=== PATIENT | male | born 1945 | race Caucasian/White ===

== ENCOUNTER 2018-07-08 07:11 | Day surgery (SDC) | payer BC, OTHER ==
[~2018-07-08 07:11] MED LIST: Buffered Lidocaine 0.9% SYRIN* 5 ML/SYR SYRINGE INTRADERM ONE
[2018-07-08] MEDS ORDERED: ROPIVACAINE 5 MG/ML 30 ML BTL (0.5%) ONE (08:12)
[2018-07-08] MEDS ORDERED: Midazolam* 1 MG/ML 2 ML VIAL (2 MG) ONE (08:15)
[2018-07-08] MEDS ORDERED: fentaNYL* 50 MCG/ML 2 ML VIAL (100 MCG VIAL) ONE (08:15)
[2018-07-08] MEDS ORDERED: Ondansetron INJ* 2 MG/ML VIAL IV PRN (08:54)
[2018-07-08] MEDS ORDERED: Naloxone* 0.4 MG/ML 1 ML VIAL IV PRN (08:54)
[2018-07-08] MEDS ORDERED: Acetaminophen TAB* 325 MG PO PRN (08:54)
[2018-07-08] MEDS ORDERED: oxyCODONE TAB* 5 MG TAB PO PRN (08:54)
[2018-07-08 10:30] VITALS: BP 133/66
--- NOTE | 2018-07-09 03:17 | OP ---
DATE OF OPERATION: 07/08/18 - [facility] DATE OF : 49 SURGEON: Helio Park MD SUPERVISOR [employer]: FARHANA Lyon ANESTHESIOLOGIST: Dr. Moreno. ANESTHESIA: Local MAC. PRE-OP DIAGNOSES: 1. Left carpal tunnel syndrome. 2. Left ulnar nerve compression at the wrist. POST-OP DIAGNOSES: 1. Left carpal tunnel syndrome. 2. Left ulnar nerve compression at the wrist. OPERATIVE PROCEDURES: 1. Left carpal tunnel release. 2. Left ulnar nerve decompression including decompression of the motor branch at the wrist. INDICATIONS: Julius has significant symptoms related to left carpal tunnel syndrome. 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 We had talked about risks and benefits. He understands there is risk of neurovascular injury. He wanted to proceed with surgery. ESTIMATED BLOOD LOSS: 2 mL. COMPLICATIONS: None. FINDINGS: See above and below. DESCRIPTION OF PROCEDURE: Julius was seen in the preoperative area. The correct site, side, and procedure were identified. We came back to the operating room. We had a time-out, infiltrated the operative area with 0.5% ropivacaine. The arm was prepped and draped in the usual fashion. A time-out was performed. The arm was exsanguinated with the Esmarch and the tourniquet was inflated to 250 mmHg. I made a longitudinal incision in the proximal palm which was brought back across the ulnar side of the wrist in a Aquilino-type fashion. The dissection was carried down. Full thickness flaps were raised off of the distal antebrachial fascia and transverse carpal ligament. The fascia was opened with a 15 blade and the decompression was extended down distally staying just radial to the hook of the hamate releasing the entirety of the transverse carpal ligament and the distal antebrachial fascia. 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 This was released until there was no compression on the nerve. Once the carpal tunnel release was done, I opened the fascia overlying Guyon's canal. The ulnar artery was identified. The release was taken proximally and distally till the artery was completely freed up. There was a couple of traversing perforating branches crossing from the artery over the ulnar nerve. These were dissected free and then cauterized and released with the bipolar cautery. I then carefully released the ulnar nerve sensory branches distally. I then gently retracted the artery and the nerve out of the way and I was able to release the hypothenar fascia including the deep fascial layer in its entirety so that the motor branch was completely decompressed. Once the ulnar nerve was decompressed proximally and distally, there was no compression on the nerve. I irrigated out the wound, the skin was closed with 4-0 nylon suture. The wounds were dressed with soft dressings. He was then woken up and taken to the recovery room in stable condition. [id number]/[facility] #: [id number] RENAE
== END 2018-07-08 10:20 | disposition home or self-care (01) ==
LOC: OREAST 07:11
PROVIDERS: ATTEND Orthopaedic Surgery Hand Surgery
DX: G56.02 Carpal tunnel syndrome, left upper limb (principal); G56.22 Lesion of ulnar nerve, left upper limb; I10 Essential (primary) hypertension; I48.91 Unspecified atrial fibrillation; Z79.01 Long term (current) use of anticoagulants; Z87.891 Personal history of nicotine dependence; Z85.828 Personal history of other malignant neoplasm of skin; M19.90 Unspecified osteoarthritis, unspecified site
CPT/HCPCS: J2250; J2795; J3010

== ENCOUNTER 2021-09-14 11:29 | Observation (INO) ==
[2021-09-14] MEDS ORDERED: Lactated Ringers 500 ml BAG 500 ML IV ONE (11:53)
[2021-09-14 12:38] LABS: ABS Basophils 0.1 10^3/ul (0-0.2); ABS Lymphocytes 0.5 10^3/ul (1.0-4.8); ABS Monocytes 0.4 10^3/ul (0-0.8); ABS Neutrophils 5.6 10^3/ul (1.5-7.7); Eosinophil % 0.2 %; Hematocrit 40 % (42-52); Hemoglobin 14.7 g/dL (14.0-18.0); Lymphocyte % 7.7 %; Mean Corpuscular HGB Conc 37 g/dL (31-36); Mean Corpuscular Hemoglobin 31 pg (27-31); Mean Corpuscular Volume 86 fL (80-94); Mean Platelet Volume 9.1 fL (7.4-10.4); Nucleated Red Blood Cells % 0.1; Platelet Count 200 10^3/uL (150-450); Red Blood Count 4.68 10^6 /uL (4.18-5.48); Red Cell Distribution Width 13 % (10-15); White Blood Count 6.6 10^3/uL (3.5-10.8)
[2021-09-14 12:46] LABS: INR 2.08 (0.86-1.15)
[2021-09-14 12:56] LABS: Albumin 3.9 g/dL (3.2-5.2); Calcium 9.1 mg/dL (8.6-10.3); Globulin 3.9 g/dL (2-4); Total Bilirubin 1.7 mg/dL (0.2-1.0); Total Protein 7.8 g/dL (6.4-8.9); eGFR CKD-EPI 72.5 (>60)
[2021-09-14 12:57] LABS: Troponin I 0.01 ng/mL (<0.03)
[2021-09-14 13:06] LABS: Potassium 2.6 mmol/L (3.5-5.0)
[2021-09-14] MEDS ORDERED: Potassium Chlor 20 meq TAB.ER PO ONE (13:06)
[2021-09-14] MEDS: KCL 20 MEQ/100 ML IVPREMIX 20 MEQ/100 ML BAG IV SCH ×2 (13:35→18:27)
[2021-09-14] MEDS ORDERED: Magnesium Sulfate 2 gm BAG 2 GM/50 ML BAG IVPB ONE (18:22)
[2021-09-14 18:44] LABS: Urine Appearance Clear; Urine Bilirubin Negative (Negative); Urine Blood Negative (Negative); Urine Color Yellow; Urine Glucose Negative (Negative); Urine Ketones Negative (Negative); Urine Nitrite Negative (Negative); Urine Protein 1+(30 mg/dL) (Negative); Urine Specific Gravity 1.015 (1.002-1.030); Urine Urobilinogen Positive (Negative)
[2021-09-14 18:46] LABS: Urine Bacteria Absent (Absent); Urine Red Blood Cell Trace(0-2/hpf) (Absent); Urine Squamous Epithelial Cell Present (Absent); Urine White Blood Cell Trace(0-5/hpf) (Absent)
[2021-09-14 21:43] LABS: Rapid COVID-19 Molecular Detected (Undetected)
[2021-09-14 22:35] LABS: Calcium 9.1 mg/dL (8.6-10.3); Potassium 3.2 mmol/L (3.5-5.0); eGFR CKD-EPI 90.5 (>60)
[2021-09-15] MEDS: Potassium Chlor 20 meq TAB.ER PO SCH ×4 (01:39→15:52)
[2021-09-15] MEDS ORDERED: Warfarin per PHARMACY **NOTE FOLLOW UP SCH (02:00)
[2021-09-15 08:08] LABS: ABS Lymphocytes 0.5 10^3/ul (1.0-4.8); ABS Monocytes 0.4 10^3/ul (0-0.8); ABS Neutrophils 4.6 10^3/ul (1.5-7.7); Eosinophil % 0.9 %; Hematocrit 40 % (42-52); Hemoglobin 14.5 g/dL (14.0-18.0); Lymphocyte % 9.2 %; Mean Corpuscular HGB Conc 36 g/dL (31-36); Mean Corpuscular Hemoglobin 32 pg (27-31); Mean Corpuscular Volume 88 fL (80-94); Mean Platelet Volume 9.2 fL (7.4-10.4); Nucleated Red Blood Cells % 0.1; Platelet Count 208 10^3/uL (150-450); Red Blood Count 4.58 10^6 /uL (4.18-5.48); Red Cell Distribution Width 13 % (10-15); White Blood Count 5.6 10^3/uL (3.5-10.8)
[2021-09-15 08:24] LABS: Calcium 9.2 mg/dL (8.6-10.3); INR 2.38 (0.86-1.15); Potassium 3.7 mmol/L (3.5-5.0)
[2021-09-15] MEDS: CMCS: Epleronone 25 mg TAB (NF) PO SCH ×2 (09:15→10:44)
[2021-09-15 12:59] LABS: Magnesium 2.3 mg/dL (1.9-2.7)
[2021-09-15 19:03] LABS: Calcium 9.3 mg/dL (8.6-10.3); Magnesium 2.1 mg/dL (1.9-2.7); Potassium 4.6 mmol/L (3.5-5.0); eGFR CKD-EPI 81.4 (>60)
[2021-09-16 06:39] LABS: Hematocrit 38 % (42-52); Hemoglobin 13.8 g/dL (14.0-18.0); Mean Platelet Volume 8.6 fL (7.4-10.4); Platelet Count 227 10^3/uL (150-450)
[2021-09-16 06:54] LABS: INR 3.02 (0.86-1.15)
[2021-09-16 07:06] LABS: Calcium 9.5 mg/dL (8.6-10.3); Potassium 4.6 mmol/L (3.5-5.0); eGFR CKD-EPI 86.7 (>60)
[2021-09-16] MEDS ORDERED: Flu vaccine *QUAD* 2021-22* 0.5 ML SYRINGE IM ONE (09:00)
[2021-09-16] MEDS: CMCS: Epleronone 25 mg TAB (NF) PO SCH (10:35)
[2021-09-16] MEDS ORDERED: Warfarin DAILY REMINDER **NOTE FOLLOW UP SCH (17:00)
[2021-09-16] MEDS: Lactated Ringers 1000 ml BAG 1,000 ML IV SCH ×2 (17:52→20:31)
[2021-09-17] MEDS: Lactated Ringers 1000 ml BAG 1,000 ML IV SCH (05:33)
[2021-09-17 05:44] LABS: Hematocrit 38 % (42-52); Hemoglobin 13.5 g/dL (14.0-18.0); Mean Platelet Volume 8.5 fL (7.4-10.4); Platelet Count 252 10^3/uL (150-450)
[2021-09-17 06:02] LABS: Calcium 9.1 mg/dL (8.6-10.3); Magnesium 1.8 mg/dL (1.9-2.7); Potassium 3.9 mmol/L (3.5-5.0); eGFR CKD-EPI 93.4 (>60)
[2021-09-17 06:06] LABS: INR 2.8 (0.86-1.15)
[2021-09-17] MEDS ORDERED: Potassium Chlor 20 meq TAB.ER PO ONE (08:00)
[2021-09-17] MEDS ORDERED: Magnesium Sulfate 2 gm BAG 2 GM/50 ML BAG IVPB ONE (08:00)
[2021-09-17] MEDS: CMCS: Epleronone 25 mg TAB (NF) PO SCH (09:41)
[2021-09-17 10:23] VITALS: BP 101/51
[2021-09-17] MEDS ORDERED: Lactated Ringers 500 ml BAG 500 ML IV ONE (11:11)
== END 2021-09-17 13:50 | disposition home or self-care (01) ==
LOC: ED 11:29 → EDHOLD 11:29 → SUATTDRO 09-15 04:32 → MED 09-15 05:15
PROVIDERS: ADMIT Internal Medicine; ATTEND Internal Medicine